=== PATIENT | female | born 1970 | race Caucasian/White ===

== ENCOUNTER 2016-10-17 17:10 | Emergency (ER) | payer OTHER | END 2016-10-17 19:10 | disposition home or self-care (01) | LOC: ER1 17:10 | DX: S93.401A Sprain of unspecified ligament of right ankle, initial encounter (principal); Z88.0 Allergy status to penicillin; Z88.5 Allergy status to narcotic agent; W18.39XA Other fall on same level, initial encounter; X50.1XXA Overexertion from prolonged static or awkward postures, initial encounter; Y92.007 Garden or yard of unspecified non-institutional (private) residence as the place of occurrence of the external cause | CPT/HCPCS: 73610; 73630; 99283 ==